=== PATIENT | female | born 1965 | race Caucasian/White ===

== ENCOUNTER → 2016-11-24 | Outpatient (CLI) | payer BC ==
[~2016-11-24] MED LIST: BCP
--- NOTE | 2016-12-01 07:35 | CODING QUERY NO DIAGNOSIS ---
TREATMENT RENDERED WITHOUT A DIAGNOSIS : 65 To promote full compliance with coding requirements relating to patient care, physician participation is requested in all cases of aircraft motor mechanic uncertainty. Please assist us with providing a diagnosis/symptom for the test(s) below: A diagnosis/symptom was not documented on your Order. A valid diagnosis/symptom is required to bill all insurances. Please remember that we are unable to code a diagnosis of rule out, probable, possible, questionable, or suspected. Tests that require a diagnosis: DOS: 11/24/16 * ESTRADIOL, ENHANCED DIAGNOSIS: * FOLLICLE STIMULATING DIAGNOSIS: Provider Signature: Date: Thank you Yesika Aguero Health Information Management Once completed, please kindly fax back to [phone] For questions please call [phone]
== END | disposition home or self-care (01) ==
LOC: C.LABPVFM 11:43
PROVIDERS: ATTEND Nurse Practitioner Women's Health
DX: Z30.9 Encounter for contraceptive management, unspecified (principal); N95.1 Menopausal and female climacteric states